=== PATIENT | female | born 1955 | race Caucasian/White ===

== ENCOUNTER 2018-01-01 09:45 | Inpatient (IN) ==
[2018-01-01] MEDS ORDERED: NORMAL SALINE 10 ML SYRINGE FLUSH IVP PRN (10:25)
[2018-01-01] MEDS ORDERED: Sodium Chloride 0.9% 1,000 ML PRIMARY IV ONE (10:25)
--- NOTE | 2018-01-01 10:45 | EKG ---
[address] [place] [address] Measurements Intervals [place] Rate: 98 P: 50 VT: 142 QRS: 19 QRSD: 93 T: 11 QT: 350 QTc: 405 Interpretive Statements SINUS RHYTHM LOW QRS VOLTAGE IN PRECORDIAL LEADS [QRS DEFLECTION < 1.0 mV IN CHEST LEADS] No previous ECG available for comparison Electronically Signed On 01-02-18 08:32:15 MDT by Derian Nuno MD [email or web address]
[2018-01-01] MEDS ORDERED: cefTRIAXone Inj 2 GM in Sodium Chloride 0.9% 100 ML IV ONE (10:53)
[2018-01-01 11:43] LABS: Hematocrit [HCT] 29.1 % (37.0-47.0); Hemoglobin [HGB] 9.4 g/dL (12.0-16.0); MEAN CORPUSCULAR HEMOGLOBIN 30.1 PG (27-31); MEAN CORPUSCULAR HGB CONC 32.3 g/dL (33-37); MEAN CORPUSCULAR VOLUME 93.3 FL (81-99); MEAN PLATELET VOLUME 9.2 FL (7.4-12.2); RED BLOOD COUNT 3.12 10^6/uL (4.20-5.40)
[2018-01-01 11:59] LABS: SERUM ALBUMIN 3.1 g/dL (3.5-4.8)
--- NOTE | 2018-01-01 12:07 | DI ---
Chest PA and lateral views INDICATION: Cough COMPARISON: None FINDINGS: PA and lateral views of the chest are obtained. The cardiomediastinal silhouette is within normal limits. Retrocardiac opacity may represent developing pneumonia, followup to resolution. No pleural effusions. Bony elements are within normal limits. IMPRESSION: Retrocardiac opacity may represent developing pneumonia, followup to resolution.
[2018-01-01 12:16] LABS: PLATELET MORPHOLOGY COMMENT NORMAL MORPHOLOGY (NORM); RBC MORPHOLOGY COMMENT NORMAL MORPHOLOGY (NORM)
[2018-01-01 12:17] LABS: BAND NEUTROPHILS % 6 % (0-10); NEUTROPHILS % (MANUAL) 69 % (50-80); WBC MORPHOLOGY COMMENT SEE COMMENTS (NORM)
[2018-01-01 12:18] LABS: BASOPHILS % (MANUAL) 0 % (0-1); EOSINOPHILS % (MANUAL) 0 % (0-8); METAMYELOCYTES % 0 %; MONOCYTES % (MANUAL) 6 % (0-12); MYELOCYTES % 0 %; PROMYELOCYTES % 0 %
[2018-01-01] MEDS ORDERED: Hold Metformin-See Instruction 1 EACH MIS PRN (12:23)
[2018-01-01 12:30] LABS: VENOUS PH 7.38 (7.32-7.42)
--- NOTE | 2018-01-01 14:26 | DI ---
EXAM: CT Chest With Intravenous Contrast CLINICAL HISTORY: Dyspnea, SOB, elevated D-dimer. 52 ml Isovue 370, TECHNIQUE: Axial computed tomography images of the chest with intravenous contrast during the arterial phase of enhancement. Coronal and sagittal reformatted images were created and reviewed. COMPARISON: No relevant prior studies available. FINDINGS: Pulmonary arteries: See below. Aorta: No acute findings. No thoracic aortic aneurysm. Lungs: Questionable small filling defect right upper lobe pulmonary artery, axial image 30 of series 3 and left upper lobe, axial image 29 of series 3. These may be due to streak artifact but cannot exclude small PEs. Mild hazy tree-in-bud opacities in the left upper lobe may be pneumonitis. 10 mm nodule medial left lower lobe and 5 mm nodule left upper lobe, axial image 28 of series 3. Bibasilar lung atelectasis/airspace disease. Pleural space: Small bilateral pleural effusions. No pneumothorax. Heart: Unremarkable. No cardiomegaly. No significant pericardial effusion. No evidence of RV dysfunction. Mediastinum: Small hiatal hernia. Thickening of the distal esophagus. Bones/joints: No acute fracture. No dislocation. Soft tissues: Unremarkable. Lymph nodes: Slightly prominent mediastinal bilateral hilar lymph nodes. Liver: Fatty prominent liver. IMPRESSION: 1. Questionable small filling defect right upper lobe pulmonary artery, axial image 30 of series 3 and left upper lobe, axial image 29 of series 3. These may be due to streak artifact but cannot exclude small PEs. 2. Mild hazy tree-in-bud opacities in the left upper lobe may be endobronchial spread of infection or metastases. 3. 10 mm nodule medial left lower lobe and 5 mm nodule left upper lobe, axial image 28 of series 3. For low-risk patients recommend follow-up chest CT at 3-6 months. If unchanged consider an additional follow-up CT at 18-24 months. For high-risk patients (smoking history or other known risk factors) initial follow-up chest CT at 3-6 months and if unchanged, 18-24 months. 4. Slightly prominent mediastinal bilateral hilar lymph nodes. 5. Small bilateral pleural effusions. [employer] 01/01/18 14:36 Verify Receipt Verified receipt with Jessica HURD, given to Dr. Arian Yin on 01/01 14:36 (-06:00)
--- NOTE | 2018-01-01 14:34 | DI ---
EXAM: US Duplex Bilateral Lower Extremity Veins CLINICAL HISTORY: ITS.REASON elevated d-dimer; bilateral leg swelling Physician Notes: Tech Comments: TECHNIQUE: Real-time duplex ultrasound scan of the bilateral lower extremity veins integrating B-mode two-dimensional vascular structure, Doppler spectral analysis, color flow Doppler imaging and compression. COMPARISON: No relevant prior studies available. FINDINGS: Right deep veins: Unremarkable. No DVT in the right common femoral, femoral, proximal deep femoral or popliteal veins. The veins demonstrate normal color flow, are normally compressible, with normal phasic flow and/or augmentation response. Right superficial veins: Unremarkable. No thrombus in the visualized right great saphenous vein. Left deep veins: Unremarkable. No DVT in the left common femoral, femoral, proximal deep femoral or popliteal veins. The veins demonstrate normal color flow, are normally compressible, with normal phasic flow and/or augmentation response. Left superficial veins: Unremarkable. No thrombus in the visualized left great saphenous vein. Soft tissues: No acute findings. No popliteal cyst. Other findings: IMPRESSION: No acute findings.
[2018-01-01] MEDS ORDERED: LIDOCAINE W/ SODIUM BICARB 0.5 ML SYR SUBD PRN (15:07)
[2018-01-01] MEDS ORDERED: DOCUSATE 100 MG CAPSULE PO PRN (15:07)
[2018-01-01] MEDS ORDERED: ACETAMINOPHEN 325 MG TABLET PO PRN (15:07)
[2018-01-01] MEDS ORDERED: ONDANSETRON 4 MG/2 ML VIAL IVP PRN (15:07)
[2018-01-01] MEDS ORDERED: CALCIUM CARBONATE 500 MG (TUMS) CHEWABLE TABLET PO PRN (15:07)
[2018-01-01] MEDS ORDERED: POTASSIUM CHLORIDE 20 MEQ TAB PO ONE (16:27)
[2018-01-01] MEDS ORDERED: FUROSEMIDE 10 MG/1 ML - 10 ML IVP ONE (16:27)
[2018-01-01] MEDS ORDERED: HYDROcodone-APAP 5 MG -325 MG TABLET PO PRN (16:41)
[2018-01-01] MEDS ORDERED: Insulin Sliding Scale Protocol SUBCUT PRN (16:42)
[2018-01-01] MEDS ORDERED: Glucagon Inj Vial 1 MG/ML VIAL IM PRN (16:42)
[2018-01-01] MEDS ORDERED: DEXTROSE 31 GM GEL PO PRN (16:42)
[2018-01-01] MEDS ORDERED: DEXTROSE 50%-WATER SYRINGE 50 ML SYRINGE IVP PRN (16:42)
[2018-01-01] MEDS ORDERED: ENOXAPARIN SODIUM 40 MG/0.4 ML SYRINGE SUBCUT ONE (16:45)
--- NOTE | 2018-01-01 17:00 | PDOC ---
HPI - History of Present Illness Date of Service: 01/01/18 Time of Service: 16:53 Chief Complaint: weight gain, generalized weakness History of Present Illness: This is a very pleasant 62 YO female with DMII, HTN, high cholesterol, and a recently diagnosed pelvic/ovarian mass and right obstructing kidney stone with E. coli sepsis and bacteremia who presents with her daughter today complaining of weight gain and weakness. The patient states that she has new onset edema in her lower extremities and her daughter actually described her mother's ankles is "dainty" in terms of their normal appearance. The patient's story and she started earlier this month, when she came down with right-sided pain and was diagnosed with a urinary tract infection. She is placed on Macrobid but that did not help. She was then given some Pyridium and that did not help. On December 27, the pain was too much, and she came in for evaluation and was found to have a large ovarian or pelvic mass, along with a 5 mm obstructing kidney stone on the right side with presumed renal pelvis rupture. The patient was transferred to [facility] in [place], [place], at that time, and a ureteral stent was placed and fluid was obtained for cultures. Escherichia coli grew out there. It was pansensitive in both locations. She also had Escherichia coli growing in the blood here in [place], [place], from her 2017 emergency room visit. They treated her with Rocephin for the infection and she's been doing well in that regard. I spoke with infectious disease specialist there and they were planning on 7-10 days of IV antibiotics with by mouth antibiotics following that at least until the stone was removed and the stent exchange took place. In terms of the pelvic mass, the patient had toy consultant see her at [facility] who then wanted an office visit to generate an office based referral for gynecologic/oncologic service in [place]. That referral has not taken place at this time. The patient was discharged from [facility] yesterday, but came back here with her daughter complaining of the increased weight gain and edema. Patient does not had anything like this happen before. She does not have any chest pain. She's not had any fevers or cough. In the emergency room today, the patient had a CT scan to look for pulmonary emboli due to an elevated d-dimer and I discussed with the radiologist and it appears that there is a streak artifact but no evidence for pulmonary emboli. Nothing thus far has helped the patient feel better from her weight gain and fluid overload and weakness standpoint. There seems to be no exacerbating factors. She's not had congestive heart failure diagnosed before. She's never had an echocardiogram. She did have noted some pleural effusions bilaterally. Past Medical History Medical History: 1. Escherichia coli sepsis/bacteremia due to right nephrolithiasis with hydroureteral and hydronephrosis but no evidence of ruptured renal pelvis. (No extravasation of fluid at the time of stent placement). 2. Hypertension. 3. Recently diagnosed pelvic mass on 12/27/2017 , still in workup. 4. Hypercholesterolemia. 5. Diabetes mellitus type II, well-controlled no known complications. 6. Obesity with body mass index greater than 40 kg/m Surgical History: 1. Remote hysterectomy. Pertinent Family History: Her father had prostate cancer and heart disease. Past Social History: Does not smoke or drink. . 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 Lives with her . Has 1 daughter who is healthy. She is full code. Tobacco Use: Never Smoker In the Past 12 Months, Have Used or Abuse Any of the Following Substance: None Alcohol Use: None Medication / Allergies Home Medications: Home Medications 3 Medication Instructions Recorded Confirmed Type Metformin HCl 1,000 mg PO BID 12/27/17 01/01/18 History Metoprolol Succinate 100 gm PO BID 12/27/17 01/01/18 History Phenazopyridine HCl [Pyridium] 100 mg PO TID 12/27/17 01/01/18 History Simvastatin 20 mg PO BEDTIME 12/27/17 01/01/18 History cefTRIAXone Inj 2gm (Premix) 2 gm IV DAILY 01/01/18 01/01/18 History [Rocephin Inj 2gm (Premix)] Allergies/Adverse Reactions: Allergies 3 Allergy/AdvReac Type Severity Reaction Status Date / Time codeine Allergy Mild NAUSEA Verified 12/27/17 15:06 Review of Systems - Review of Systems All Systems: Reviewed & No Additional Complaints Except as Stated (I did a 12 point review systems was negative other than that discussed in history of present illness and those exceptions noted below.) - Constitutional Constitutional: REPORTS: Weight Gain (7 pounds over the last couple of days.), Weakness, Recent Illness - Respiratory Respiratory: REPORTS: Negative System Review - Cardiovascular Cardiovascular: REPORTS: Negative System Review - Gastrointestinal Gastrointestinal / Abdominal: REPORTS: Negative System Review - Genitourinary Genitourinary: REPORTS: Other (Had had some developing urinary incontinence that the patient attributed to her age over the last several months.) - Musculoskeletal Musculoskeletal: REPORTS: Joint Pain - Hands (Specifically the fingers) - Neurological Neurologic: REPORTS: Negative System Review - Additonal Details Additional ROS Details: Does not monitor her blood pressures at home. But they tend to be systolics in the 140s when she is in for her office appointments with her primary physician, Dr. Shannon. Exam - Vitals Vital Signs: Vital Signs Temperature 97 F Temperature Source Temporal Artery Scan Pulse Rate [Pulse Oximeter] 106 Respiratory Rate 20 Blood Pressure [Left Arm] 176/83 Pulse Ox 92 Oxygen Delivery Method Room Air Weight 255 lb - General General Appearance: No Acute Distress, Cooperative - Head Head Exam: Normal Inspection, Normocephalic, Atraumatic - Eye Eye Exam: POSITIVE: No Scleral Icterus - ENT ENT Exam: POSITIVE: Mucous Membranes Moist - Neck Neck Exam: Normal Inspection, No Tenderness, No Lymphadenopathy, No Thyromegaly , JVP is not Raised - Respiratory Respiratory Exam: POSITIVE: Breathing Non Labored, Normal To Percussion, Normal to Percussion and Palpation, Decreased Breath Sounds (In the bases bilaterally) - Cardiovascular Cardiovascular Exam: POSITIVE: RRR, No Murmur, No Clicks, No Gallops, No Rubs, No JVD - GI/Abdominal GI/Abdominal Exam: POSITIVE: Normal Bowel Sounds, Non Tender, Non Distended, Soft - Rectal Rectal Exam: POSITIVE: Deferred - External Exam: POSITIVE: Deferred Exam: POSITIVE: Deferred - Extremities Extremities Exam: POSITIVE: No Clubbing Present, No Cyanosis Present, Pedal Edema, +2 Edema - Back Back Exam: POSITIVE: No CVA Tenderness - Neurological Neurological Exam: POSITIVE: Alert, Oriented x 3, Normal Gait, No Facial Droop, Speech Intact / Clear, Moves All Extremities Equally - Psychiatric Psychiatric Exam: POSITIVE: Normal Affect, Normal Mood Results - Labs CBC and BMP: 01/01/18 11:35 01/01/18 11:35 Additional Lab Results: Laboratory Results 01/01/18 01/01/18 01/01/18 Range/Units 10:50 11:35 11:35 WBC (4.8-10.8) 10^3/uL RBC (4.20-5.40) 10^6/uL Hgb (12.0-16.0) g/dL Hct (37.0-47.0) % MCV (81-99) FL MCH (27-31) PG MCHC (33-37) g/dL RDW Std Deviation (39-50) fL RDW Coeff of Ronny (11.5-14.5) % Plt Count (140-350) 10*3/uL MPV (7.4-12.2) FL Neutrophils % (Manual) (50-80) % Band Neutrophils % (0-10) % Lymphocytes % (Manual) (10-50) % Monocytes % (Manual) (0-12) % Eosinophils % (Manual) (0-8) % Basophils % (Manual) (0-1) % Metamyelocytes % % Myelocytes % % Promyelocytes % % Blast Cells (0-1) % WBC Morphology Comment (NORM) Plt Morphology Comment (NORM) RBC Morph Comment (NORM) D-Dimer 4.64 H (0.00-0.59) mg/L VBG pH 7.38 (7.32-7.42) VBG pCO2 35 L (45-55) mmHg VBG HCO3 21 L (22-26) mmol/L VBG Base Excess -4 L (-2-2) MMOL/L Sodium (135-145) meq/L Potassium (3.8-5.2) meq/L Chloride (98-112) meq/L Carbon Dioxide (23-33) meq/L Anion Gap (5-20) BUN (7-22) mg/dL Creatinine (0.50-1.20) mg/dL Estimated GFR (>60 ml/min/1.73m(2)) BUN/Creatinine Ratio (6-20) Glucose (78-110) mg/dL Calculated Osmolality (267-292) mOsm/kg Lactic Acid 0.8 (0.70-2.10) MMOL/L Calcium (8.7-10.7) mg/dL Total Bilirubin (0.3-1.2) mg/dL AST (8-39) IU/L ALT (9-52) IU/L Alkaline Phosphatase (38-126) IU/L CK-MB (CK-2) (0.00-5.00) NG/ML Troponin I (< 0.040) ng/mL NT-Pro-B Natriuret Pep (0-125) PG/ML Total Protein (6.1-8.0) g/dL Albumin (3.5-4.8) g/dL Globulin (2.50-4.10) g/dL Albumin/Globulin Ratio (1.3-2.0) mg/g 01/01/18 01/01/18 01/01/18 Range/Units 11:35 11:35 11:35 WBC 13.47 H (4.8-10.8) 10^3/uL RBC 3.12 L (4.20-5.40) 10^6/uL Hgb 9.4 L (12.0-16.0) g/dL Hct 29.1 L (37.0-47.0) % MCV 93.3 (81-99) FL MCH 30.1 (27-31) PG MCHC 32.3 L (33-37) g/dL RDW Std Deviation 48.7 (39-50) fL RDW Coeff of Ronny 14.8 H (11.5-14.5) % Plt Count 319 (140-350) 10*3/uL MPV 9.2 (7.4-12.2) FL Neutrophils % (Manual) 69 (50-80) % Band Neutrophils % 6 (0-10) % Lymphocytes % (Manual) 19 (10-50) % Monocytes % (Manual) 6 (0-12) % Eosinophils % (Manual) 0 (0-8) % Basophils % (Manual) 0 (0-1) % Metamyelocytes % 0 % Myelocytes % 0 % Promyelocytes % 0 % Blast Cells 0 (0-1) % WBC Morphology Comment See comments (NORM) Plt Morphology Comment Normal morphology (NORM) RBC Morph Comment Normal morphology (NORM) D-Dimer (0.00-0.59) mg/L VBG pH (7.32-7.42) VBG pCO2 (45-55) mmHg VBG HCO3 (22-26) mmol/L VBG Base Excess (-2-2) MMOL/L Sodium (135-145) meq/L Potassium (3.8-5.2) meq/L Chloride (98-112) meq/L Carbon Dioxide (23-33) meq/L Anion Gap (5-20) BUN (7-22) mg/dL Creatinine (0.50-1.20) mg/dL Estimated GFR (>60 ml/min/1.73m(2)) BUN/Creatinine Ratio (6-20) Glucose (78-110) mg/dL Calculated Osmolality (267-292) mOsm/kg Lactic Acid (0.70-2.10) MMOL/L Calcium (8.7-10.7) mg/dL Total Bilirubin (0.3-1.2) mg/dL AST (8-39) IU/L ALT (9-52) IU/L Alkaline Phosphatase (38-126) IU/L CK-MB (CK-2) 0.22 (0.00-5.00) NG/ML Troponin I < 0.012 (< 0.040) ng/mL NT-Pro-B Natriuret Pep 957 H (0-125) PG/ML Total Protein (6.1-8.0) g/dL Albumin (3.5-4.8) g/dL Globulin (2.50-4.10) g/dL Albumin/Globulin Ratio (1.3-2.0) mg/g 01/01/18 Range/Units 11:35 WBC (4.8-10.8) 10^3/uL RBC (4.20-5.40) 10^6/uL Hgb (12.0-16.0) g/dL Hct (37.0-47.0) % MCV (81-99) FL MCH (27-31) PG MCHC (33-37) g/dL RDW Std Deviation (39-50) fL RDW Coeff of Ronny (11.5-14.5) % Plt Count (140-350) 10*3/uL MPV (7.4-12.2) FL Neutrophils % (Manual) (50-80) % Band Neutrophils % (0-10) % Lymphocytes % (Manual) (10-50) % Monocytes % (Manual) (0-12) % Eosinophils % (Manual) (0-8) % Basophils % (Manual) (0-1) % Metamyelocytes % % Myelocytes % % Promyelocytes % % Blast Cells (0-1) % WBC Morphology Comment (NORM) Plt Morphology Comment (NORM) RBC Morph Comment (NORM) D-Dimer (0.00-0.59) mg/L VBG pH (7.32-7.42) VBG pCO2 (45-55) mmHg VBG HCO3 (22-26) mmol/L VBG Base Excess (-2-2) MMOL/L Sodium 139 (135-145) meq/L Potassium 3.7 L D (3.8-5.2) meq/L Chloride 106 (98-112) meq/L Carbon Dioxide 20 L (23-33) meq/L Anion Gap 13 (5-20) BUN 26 H (7-22) mg/dL Creatinine 1.0 (0.50-1.20) mg/dL Estimated GFR 56 (>60 ml/min/1.73m(2)) BUN/Creatinine Ratio 26.00 H (6-20) Glucose 106 (78-110) mg/dL Calculated Osmolality 292.0 (267-292) mOsm/kg Lactic Acid (0.70-2.10) MMOL/L Calcium 8.6 L (8.7-10.7) mg/dL Total Bilirubin 0.3 D (0.3-1.2) mg/dL AST 31 (8-39) IU/L ALT 37 (9-52) IU/L Alkaline Phosphatase 197 H (38-126) IU/L CK-MB (CK-2) (0.00-5.00) NG/ML Troponin I (< 0.040) ng/mL NT-Pro-B Natriuret Pep (0-125) PG/ML Total Protein 6.4 (6.1-8.0) g/dL Albumin 3.1 L (3.5-4.8) g/dL Globulin 3.3 (2.50-4.10) g/dL Albumin/Globulin Ratio 0.90 L (1.3-2.0) mg/g - EKG Data -: EKG Interpreted by Me Rate: Normal EKG Shows Normal: Sinus Rhythm - Imaging Status: Image Reviewed by Me (I reviewed the CT scan of the chest and discussed with Dr. Rollins, and it appears that the presumed blood clots are actually streak artifact. There is no pneumonia. There are bilateral effusions. I reviewed the CT scan from 12/27/2017, there is a large pelvic mass of about 14 x 19-20 cm. There was right hydronephrosis and hydroureter on that exam as well as a right kidney stone.), Other (I looked at the chest x-ray and is no evidence of pneumonia. There may be a slight left-sided pleural effusion that better seen on CT scan. Ultrasound studies were negative. That is for DVT.) Assessment and Plan - Patient Problems (1) Fluid overload Current Visit: Yes Status: Acute Code(s): E87.70 - Fluid overload, unspecified Qualifiers: Hypervolemia type: other Qualified Code(s): E87.79 - Other fluid overload (2) Bacteremia, escherichia coli Current Visit: Yes Status: Acute Code(s): R78.81 - Bacteremia (3) Pelvic mass Current Visit: Yes Status: Acute Code(s): R19.00 - Intra-abdominal and pelvic swelling, mass and lump, unspecified site (4) Diabetes mellitus type II, controlled Current Visit: Yes Status: Acute Code(s): E11.9 - Type 2 diabetes mellitus without complications Qualifiers: Diabetes mellitus senior care insulin use: without lobsterman use Diabetes mellitus complication status: without complication Qualified Code(s): E11.9 - Type 2 diabetes mellitus without complications (5) Hypertension Current Visit: Yes Status: Acute Code(s): I10 - Essential (primary) hypertension Qualifiers: Hypertension type: essential hypertension Qualified Code(s): I10 - Essential (primary) hypertension (6) Hypercholesterolemia Current Visit: Yes Status: Acute Code(s): E78.00 - Pure hypercholesterolemia , unspecified (7) Obesity Current Visit: Yes Status: Acute Code(s): E66.9 - Obesity, unspecified Qualifiers: Obesity classification: adult class 3 (BMI >= 40) Body mass index: BMI 45.0 -49.9 (8) Nephrolithiasis Current Visit: Yes Status: Acute Code(s): N20.0 - Calculus of kidney - Assessment / Plan Additional Assessment/Plan Details: Overall, I suspect she has fluid overload in the setting of resuscitation for her recent bout of Escherichia coli sepsis. She could have some diastolic dysfunction or right heart failure as well given her obesity, and may benefit from an echocardiogram but I'd like to diurese first. In terms of the pelvic mass, this is likely an ovarian mass, so I will get a CA- 125 level, and a human epididymis protein 4 level. I think ultimately she needs referral to the assembly line leader/oncologist physician. We will coordinate that tomorrow as possible. Continue the Rocephin IV 2 g every 24 hours. I spoke with infectious disease, we will continue that for total of 7-10 days and then switch to by mouth antibiotics until the patient can follow up with urology to have her stent removed, stone removed, and stent exchanged. It may be that this could be coordinated in [place] with her assembly line leader/oncologist referral as well? We will have to explore this scenario tomorrow. Check labs in a.m. Replace potassium. Continue DVT prophylaxis. I spoke with Dr. Rollins, and he feels that this is likely a streak artifact and not indicative of pulmonary emboli. I think the d-dimer is probably elevated in the setting of sepsis, infection, and everything else going on. Patient is full code. I discussed with her and her daughter. Discussed the above plan with the patient and her daughter and they agreed.
[2018-01-01] MEDS ORDERED: LIDOCAINE HCL 2 % 10 ML JELLY URO-JECT TOPICAL PRN (17:19)
[2018-01-01] MEDS ORDERED: METOPROLOL SUCCINATE PO SCH (21:00)
[2018-01-01] MEDS ORDERED: METOPROLOL SUCCINATE 50 MG PO SCH (21:00)
[2018-01-01] MEDS: Insulin Lispro Flexpen 300 UNIT/3 ML INSULN.PEN SUBCUT SCH (21:22)
[2018-01-01] MEDS ORDERED: Metoprolol TARTRATE Tab 50 MG TAB PO ONE (21:37)
--- NOTE | 2018-01-02 01:52 | PDOC ---
General Adult HPI - General Chief Complaint: Respiratory Complaint Stated Complaint: difficulty breathing, swollen feet and ankles Date Seen by Provider: 01/01/18 Time Seen by Provider: 10:00 Source: POSITIVE: Patient, Old records, Other (Daughter) Exam Limitations: POSITIVE: No limitations Nurse's Notes Reviewed & Considered: Yes - History of Present Illness Initial Comment: The patient is a 62-year-old female. Patient states that she was discharged from [facility] yesterday after having been treated for urosepsis. Patient was initially seen at our facility prior to going to [facility] on 12/27/2017. CT here at that time showed extravasation from the right kidney with decompression of the renal pelvis and right ureter. There was a 5 mm distal ureteral calculus. Also noted was a 15 x 15 x 20 cm mass in the central portion of the pelvis. Patient was transferred to [facility] on that day and treated for urosepsis and she had ureteral stenting done at that time. She is presently receiving Rocephin, 2 g IV. Her chief complaint upon presentation to the emergency room today is "swollen feet and ankles "and some shortness of breath. She has had some hoarseness since Tuesday following intubation which was done for her ureteral stenting. No known fevers or chills. Mild cough. No hemoptysis. No chest pain. Patient states that she was evaluated for her pelvic mass by [facility] in [place] and reportedly they are trying to arrange for her to have this further evaluated " by specialists ". Have you received a tetanus shot in the past 10 years?: Yes Body Location Affected: REPORTS: Lower Extremity (L), Lower Extremity (R) ( Swelling of the feet), Chest (Shortness of breath) Timing: REPORTS: Gradual Duration: >24 hours Severity: Moderate Quality: REPORTS: Other (Patient denies any pain anywhere) Context: DENIES: None, Sitting, Standing, Activity, Emotional stress, Coughing, Recent Trauma, Recent Surgery, Sleep, Rest, Lifting, Turning, Bending, Fall, Near Fall, Other Modifying Factors: improves with: Other (Decreased appetite) Similar Symptoms Previously: No Recent Care Received: REPORTS: Recently Seen, Treated by MD, Hospitalized, Surgery (As above) Any Prior Injuries Related to Current Complaint?: No - Patient Home Medications Home Medications: Home Medications Metformin HCl 1,000 mg PO BID 12/27/17 Metoprolol Succinate 100 gm PO BID 12/27/17 Phenazopyridine HCl [Pyridium] 100 mg PO TID 12/27/17 Simvastatin 20 mg PO BEDTIME 12/27/17 cefTRIAXone Inj 2gm (Premix) [Rocephin Inj 2gm (Premix)] 2 gm IV DAILY 01/01/18 - Patient Allergies Allergies/Adverse Reactions: Allergies 3 Allergy/AdvReac Type Severity Reaction Status Date / Time codeine Allergy Mild NAUSEA Verified 12/27/17 15:06 Past Medical History - heen HEENT History: Denies History Cardiovascular History: Hypertension, Hyperlipidemia Respiratory History: Denies History Gastrointestinal History: Denies History Genitourinary History: Denies History Endocrine History: Type 2 Diabetes (oral) Musculoskeletal History: Denies History Neurological History: Denies History Blood Disorders: Denies History Psychiatric History: Denies History History of Sexually Transmitted Diseases: No Cancer History: Denies History In Past Year Been Physically Harmed or Verbally Threatened: No History of MDRO: No Tobacco Use: Never Smoker In the Past 12 Months, Have Used or Abuse Any Substance: None Previous Surgical History: Yes Type / Date of Surgery: hysterectomy Significant Family History: Cancer Additional Family History: father Past Medical History Reviewed: Reviewed - No Changes ROS - Limitations ROS Limitations: No Limitations Constitution: REPORTS: Weight Loss (Patient states she has lost 5 pounds in the past 6 days) Cardiovascular: REPORTS: Denies Cardiac Symptoms Respiratory: REPORTS: Shortness Of Breath Neurological: REPORTS: Denies Neuro Symptoms Gastrointestinal: REPORTS: Denies GI Symptoms Endocrine: REPORTS: Denies Symptoms Musculoskeletal: REPORTS: Denies MS Symptoms Genitourinary: REPORTS: Denies Symptoms Eyes: REPORTS: Denies Symptoms ENT: REPORTS: Denies Symptoms Skin: REPORTS: Denies Skin Symptoms Lympathic: REPORTS: Denies Lympathic Symptoms Immunologic: POSITIVE: Denies Symptoms Psychiatric: POSITIVE: Denies Psych Symptoms General Adult Exam - General Appearance General Appearance: POSITIVE: Alert, Cooperative, No Acute Distress, No Evidence of Trauma - HEENT HEENT: POSITIVE: Head Inspection Nml, Eyes Inspection Nml, Ears Inspection Nml, Nose Inspection Nml, Oral/Dental Inspect. Nml, Pharynx Inspect. Nml, PERRL, EOMI - Pupils Pupil Size: 3 mm: Bilateral (PERRLA) - Neck Neck: POSITIVE: Normal Inspection, Thyroid Normal - Respiratory Respiratory: POSITIVE: No Respiratory Distress, Breath Sounds Normal, Chest Non- Tender - Cardiovascular Cardiovascular: POSITIVE: Regular Rate & Rhythm, No Murmur, No Gallop, PMI Normal Peripheral Pulses: Radial (R): 2+, Radial (L): 2+, Dorsalis-pedis (R): 2+, Dorsalis-pedis (L): 2+ - Abdomen Abdomen: Soft: (All Quadrants), Normal Bowel Sounds: (All Quadrants), Denies Tenderness: (All Quadrants), No Splenomegaly: (All Quadrants), No Hepatomegaly: (All Quadrants), No Guarding: (All Quadrants), No Rebound: (All Quadrants), No Palpable Pulse: (All Quadrants), Palpable Mass Noted: (RUQ), (LUQ) Additional Abdominal Details: Abdominal examination shows bowel sounds to be active. There is a palpable mass in the lower abdomen somewhat more to the left than to the right. - Back Back: POSITIVE: Normal Inspection - Skin Skin: POSITIVE: Normal Color, Warm, Dry, No Rash - Extremities Extremity: Non-Tender: (All Extremities), Normal ROM: (All Extremities), Pelvis Stable: (All Extremities), Normal Tendon Exam: (All Extremities), Calf Tenderness: (RLE), (LLE) Additional Extremities Details: Examination of the extremities shows some pedal edema bilaterally, nonpitting. Extremities are nontender on palpation. No signs of infection. - Neurological / Psychological Neurological: POSITIVE: Oriented X3, emergency care attendant Normal As Tested, Motor Normal, Sensation Normal, 5, 6 Images - Complete Complete: 1 - Pedal edema General Adult Progress - Results Reviewed by me Xrays/CTs/US Reviewed by me: Yes Discussed with Radiologist: Yes Radiology Findings: Radiologist reads chest x-ray as showing "retro-paracardial opacity, may represent developing pneumonia". Patient had an elevated d-dimer so CTA of chest with IV contrast was done which showed "questionable small filling defect left upper lobe pulmonary artery and left upper lobe. These may be due to streak artifact but cannot rule out small PEs ". Radiologist also identifies "mild hazy tree-in-bud opacities in the left upper lobe may be endobronchial spread of infection or metastases. "Small bilateral pleural effusions. Venous duplex ultrasound of both lower extremities and negative. Lab Results Reviewed by Me: Yes (d-dimer 4.64; troponin negative; BNP 957) CBC and BMP: 01/01/18 11:35 01/01/18 11:35 EKG Interpreted/Reviewed By Me:: Yes (normal) EKG Interpretation:: POSITIVE: Normal Sinus Rhythm, Normal Rate, Normal Intervals, Normal [place], Normal QRS, Normal ST/T - Patient's Progress Pain Medication Addressed: POSITIVE: Not Applicable School/Work Release Addressed: POSITIVE: Not Applicable Re-Examine Time: 14:45 Re-Examine Comment: Condition unchanged Status: POSITIVE: Unchanged, Re-Examined Antibiotics Given: No - Consult Consult (If Yes, Name of Consulting MD & Time Called): Yes (Dr. Delgadillo, hospitalist, [id number]) Consulting MD will see pt:: POSITIVE: [facility] Admit Counseled: POSITIVE: Patient, Family, RE: Lab Results, RE: Radiology Results, RE : DX, RE: Need for F/U Patient Care Time - Estimated PCT Patient Care Time (In Minutes): 60 Vital Signs - Recent Vital Signs Vital Signs: Vital Signs (Last 8 hours) Temp Pulse Resp BP Pulse Ox 01/02/18 00:35 98.8 F 91 20 122/47 94 01/01/18 20:09 97.1 F 97 16 171/77 94 - VS Reviewed Vital Signs Reviewed: Yes Discharge Clinical Impression: Pelvic mass, Dyspnea, Abnormal computed tomography angiography (CTA), Elevated brain natriuretic peptide (BNP) level, Pedal edema Discharge Disposition: Admit to Inpatient Condition: Fair Date Decision to Admit to Inpatient: 01/01/18 Time Decision to Admit to Inpatient: 14:40
[2018-01-02 05:14] LABS: Hematocrit [HCT] 28.4 % (37.0-47.0); Hemoglobin [HGB] 9.3 g/dL (12.0-16.0); MEAN CORPUSCULAR HEMOGLOBIN 30.5 PG (27-31); MEAN CORPUSCULAR HGB CONC 32.7 g/dL (33-37); MEAN CORPUSCULAR VOLUME 93.1 FL (81-99); MEAN PLATELET VOLUME 9.6 FL (7.4-12.2); RED BLOOD COUNT 3.05 10^6/uL (4.20-5.40)
[2018-01-02 05:16] LABS: BUN/CREATININE RATIO 22.72 (6-20); SERUM ALBUMIN 3.2 g/dL (3.5-4.8)
[2018-01-02 05:35] LABS: PLATELET MORPHOLOGY COMMENT NORMAL MORPHOLOGY (NORM); RBC MORPHOLOGY COMMENT SEE COMMENTS (NORM); WBC MORPHOLOGY COMMENT NORMAL MORPHOLOGY (NORM)
[2018-01-02 05:36] LABS: BAND NEUTROPHILS % 11 % (0-10); BASOPHILS % (MANUAL) 0 % (0-1); EOSINOPHILS % (MANUAL) 2 % (0-8); METAMYELOCYTES % 1 %; MONOCYTES % (MANUAL) 5 % (0-12); NEUTROPHILS % (MANUAL) 64 % (50-80)
[2018-01-02] MEDS ORDERED: CEFTRIAXONE 2 GM IV SCH (09:00)
[2018-01-02] MEDS: cefTRIAXone Inj 2 GM in Sodium Chloride 0.9% 100 ML IV SCH (09:34)
[2018-01-02] MEDS: METOPROLOL SUCCINATE 50 MG SR 24H TABLET PO SCH ×2 (09:35→10:01)
[2018-01-02] MEDS: ENOXAPARIN SODIUM 40 MG/0.4 ML SYRINGE SUBCUT SCH (09:36)
[2018-01-02] MEDS: NORMAL SALINE 10 ML SYRINGE FLUSH IVP PRN ×3 (09:47→15:21)
[2018-01-02] MEDS: Insulin Lispro Flexpen 300 UNIT/3 ML INSULN.PEN SUBCUT SCH ×4 (10:58→22:54)
[2018-01-02] MEDS ORDERED: FUROSEMIDE 10 MG/1 ML - 10 ML IVP ONE ×2 (13:49→18:52)
[2018-01-02] MEDS ORDERED: Hold Metformin-See Instruction 1 EACH MIS PRN (13:50)
[2018-01-02] MEDS ORDERED: Magnesium Sulfate 2gm (Premix) 2 GM/50 ML BAG IV ONE (14:45)
--- NOTE | 2018-01-02 18:51 | PDOC(PROG) ---
Date and Time of Service: 01/02/2018, 1845 Interval History: Patient seen and examined earlier today and seen twice today. No complaint of chest pain. Still has some edema, states that her toes are little more tingly. No nausea or vomiting, chest pain, or shortness of breath. Patient does have a hoarse voice. She thinks it's a little worse today. No feelings of throat pain. Objective : Data - Labs CBC and BMP: 01/02/18 04:10 01/02/18 04:10 Additional Lab Results: 01/02/18 04:10 Magnesium 1.5 L NT-Pro-B Natriuret Pep 803 H Selected Entries 01/02/18 07:00 01/02/18 11:00 01/02/18 16:00 Finger Stick Blood Glucose 136 H 106 112 H Objective : Exam - General General Appearance: No Acute Distress, Cooperative Additional General Exam Details: Vital Signs (24 hrs) Temp Pulse Resp BP Pulse Ox 01/02/18 17:00 97 F 105 H 18 151/83 93 01/02/18 11:19 98 F 93 18 142/76 92 01/02/18 08:08 98.1 F 99 16 140/67 93 01/02/18 07:00 98 16 01/02/18 04:12 98.1 F 99 20 137/65 93 01/02/18 04:04 92 01/02/18 00:35 98.8 F 91 20 122/47 94 01/01/18 20:09 97.1 F 97 16 171/77 94 - Eye Eye Exam: No Scleral Icterus - ENT ENT Exam: Mucous Membranes Moist - Respiratory Respiratory Exam: Clear to Auscultation - Bilaterally, Breathing Non Labored - Cardiovascular Cardiovascular Exam: RRR, No Murmur, No Clicks, No Gallops, No Rubs, No JVD - GI/Abdominal GI/Abdominal Exam: Normal Bowel Sounds, Non Tender, Non Distended, Soft - Extremities Extremities Exam: No Clubbing Present, No Cyanosis Present, Pedal Edema, +2 Edema - Neurological Neurological Exam: Alert, Oriented x 3, Normal Gait, No Facial Droop, Speech Intact / Clear, Moves All Extremities Equally Assessment and Plan - Patient Problems (1) Fluid overload Current Visit: Yes Status: Acute Code(s): E87.70 - Fluid overload, unspecified Qualifiers: Hypervolemia type: other Qualified Code(s): E87.79 - Other fluid overload (2) Bacteremia, escherichia coli Current Visit: Yes Status: Acute Code(s): R78.81 - Bacteremia (3) Pelvic mass Current Visit: Yes Status: Acute Code(s): R19.00 - Intra-abdominal and pelvic swelling, mass and lump, unspecified site (4) Diabetes mellitus type II, controlled Current Visit: Yes Status: Acute Code(s): E11.9 - Type 2 diabetes mellitus without complications Qualifiers: Diabetes mellitus prison insulin use: without bed bug exterminator use Diabetes mellitus complication status: without complication Qualified Code(s): E11.9 - Type 2 diabetes mellitus without complications (5) Hypertension Current Visit: Yes Status: Acute Code(s): I10 - Essential (primary) hypertension Qualifiers: Hypertension type: essential hypertension Qualified Code(s): I10 - Essential (primary) hypertension (6) Hypercholesterolemia Current Visit: Yes Status: Acute Code(s): E78.00 - Pure hypercholesterolemia , unspecified (7) Obesity Current Visit: Yes Status: Acute Code(s): E66.9 - Obesity, unspecified Qualifiers: Obesity classification: adult class 3 (BMI >= 40) Body mass index: BMI 45.0 -49.9 (8) Nephrolithiasis Current Visit: Yes Status: Acute Code(s): N20.0 - Calculus of kidney - Assessment / Plan Additional Assessment/Plan Details: We discussed plan extensively with her pelvic mass. I had obstetric to review it. We'll have the patient follow up with obstetrics here as it is local and that's what the patient would prefer in terms of her care. She will then decide whether she will proceed with that surgery here or possibly go on to [place] for gynecology/oncology referral. None of this would take place anyway until the stent is exchange and stone removed. Get appointment in the next week. Check labs again tomorrow. Repeat Lasix dose today and repeat another 80 mg. Give another dose of potassium. Replace magnesium. We'll get arrangements for follow-up with urology as scheduled tomorrow as well. Get echocardiogram tomorrow. If well hopefully tomorrow or home on by mouth Lasix for a week or 2. Probably will have to stop metoprolol. The patient seemed to respond MARCIA inhibitor better and although she was in renal failure in [place], was related to sepsis. I think it would be safe at this point to resume MARCIA inhibitor.
[2018-01-02] MEDS ORDERED: POTASSIUM CHLORIDE 20 MEQ TAB PO ONE (18:52)
[2018-01-02] MEDS ORDERED: LISINOPRIL 20 MG TABLET PO ONE (18:54)
--- NOTE | 2018-01-02 20:35 | DI ---
CT SCAN OF THE NECK WITHOUT IV CONTRAST, 01/02/2018 4:05 PM : Clinical History: Hoarse voice. The patient recently was intubated. Previous Exam: None at this facility. Scans are obtained from below the sternal notch to the petrous pyramids without IV contrast. Sagittal and coronal images are generated. The study was initially ordered as a scan of the neck with IV cont rast but the patient had renal insufficiency. The cervical vertebral bodies are of normal height and size. The disc spaces are normal. The carotid and vertebral arteries are grossly normal. There are no soft tissue masses on either side. No lymphad enopathy is identified. There is no prevertebral soft tissue swelling. There is asymmetry of the voca l cords with the anterior aspect of the left vocal cord being much smaller than the right side. The s cans were performed with thin slices and this required a longer time than usual with this [address] scanner. Therefore, there is a possibility that this asymmetry is an artifact. However, with the hist ory of recent intubation and hoarseness, laryngoscopy should be considered. The thyroid gland is norm al in size, but there is a dense calcification in the midportion of the right lobe. This calcificatio n is almost completely solid. The parotid and submandibular glands are normal. READIN. There is asymmetry of the vocal cords with the left side being much smaller in the anterior half than the right vocal cord. Although this may represent an artifact, with the history of hoarseness an d recent intubation, laryngoscopy is recommended. 2. There is a densely calcified nodule in the right lobe of the thyroid gland measuring 7 x 8 x 15 m m. This nodule is almost completely calcified and these typically are benign.
[2018-01-02] MEDS ORDERED: METOPROLOL SUCCINATE 50 MG SR 24H TABLET PO SCH (21:00)
[2018-01-03 05:31] LABS: Hematocrit [HCT] 28.7 % (37.0-47.0); Hemoglobin [HGB] 9.4 g/dL (12.0-16.0); MEAN CORPUSCULAR HGB CONC 32.8 g/dL (33-37); MEAN CORPUSCULAR VOLUME 91.7 FL (81-99); MEAN PLATELET VOLUME 9.3 FL (7.4-12.2); RED BLOOD COUNT 3.13 10^6/uL (4.20-5.40)
[2018-01-03 05:53] LABS: PLATELET MORPHOLOGY COMMENT NORMAL MORPHOLOGY (NORM); RBC MORPHOLOGY COMMENT NORMAL MORPHOLOGY (NORM)
[2018-01-03 05:54] LABS: BAND NEUTROPHILS % 0 % (0-10); BASOPHILS % (MANUAL) 0 % (0-1); EOSINOPHILS % (MANUAL) 1 % (0-8); MONOCYTES % (MANUAL) 5 % (0-12); NEUTROPHILS % (MANUAL) 74 % (50-80); WBC MORPHOLOGY COMMENT SEE COMMENTS (NORM)
[2018-01-03] MEDS: Insulin Lispro Flexpen 300 UNIT/3 ML INSULN.PEN SUBCUT SCH ×4 (07:21→20:26)
[2018-01-03] MEDS: ENOXAPARIN SODIUM 40 MG/0.4 ML SYRINGE SUBCUT SCH (09:33)
[2018-01-03] MEDS: cefTRIAXone Inj 2 GM in Sodium Chloride 0.9% 100 ML IV SCH (09:33)
[2018-01-03] MEDS: LISINOPRIL 20 MG TABLET PO SCH (09:33)
[2018-01-03 09:52] LABS: BUN/CREATININE RATIO 21.66 (6-20)
[2018-01-03] MEDS: HEPARIN 500 UNIT/5 ML SYRINGE FOR CENTRAL LINE IVP PRN ×2 (10:20→21:51)
[2018-01-03] MEDS: NORMAL SALINE 10 ML SYRINGE FLUSH IVP PRN ×3 (10:20→21:51)
[2018-01-03] MEDS ORDERED: Magnesium Sulfate 2gm (Premix) 2 GM/50 ML BAG IV ONE (11:05)
[2018-01-03] MEDS ORDERED: FUROSEMIDE 40 MG TABLET PO ONE (13:04)
--- NOTE | 2018-01-03 15:03 | PDOC(PROG) ---
Date and Time of Service: 01/03/2018, 1504 Interval History: No complaints of chest pain or shortness breath. Still feels like her ankles have some puffiness to them. Down to 238 pounds from over 250 pounds on admission. Diuresing very well. Voices still very soft. She had intubation in the setting of her cystoscopy. As to whether or not an endotracheal tube or a laryngeal mask airway was used I am not sure. We have follow-ups arranged for urology, infectious disease, ear nose and throat to examine her on , and obstetrics to evaluate the pelvic mass as well. All of these will take place over the next 10 days. Stop IV Lasix and start by mouth Lasix. Add daily potassium. Check electrolytes in a.m. Discontinue catheter. If all goes well, we'll discharge home tomorrow. Objective : Data - Labs CBC and BMP: 01/03/18 04:13 01/03/18 04:13 Assessment and Plan - Patient Problems (1) Fluid overload Current Visit: Yes Status: Acute Code(s): E87.70 - Fluid overload, unspecified Qualifiers: Hypervolemia type: other Qualified Code(s): E87.79 - Other fluid overload (2) Bacteremia, escherichia coli Current Visit: Yes Status: Acute Code(s): R78.81 - Bacteremia (3) Pelvic mass Current Visit: Yes Status: Acute Code(s): R19.00 - Intra-abdominal and pelvic swelling, mass and lump, unspecified site (4) Diabetes mellitus type II, controlled Current Visit: Yes Status: Acute Code(s): E11.9 - Type 2 diabetes mellitus without complications Qualifiers: Diabetes mellitus bed bug exterminator insulin use: without half-way use Diabetes mellitus complication status: without complication Qualified Code(s): E11.9 - Type 2 diabetes mellitus without complications (5) Hypertension Current Visit: Yes Status: Acute Code(s): I10 - Essential (primary) hypertension Qualifiers: Hypertension type: essential hypertension Qualified Code(s): I10 - Essential (primary) hypertension (6) Hypercholesterolemia Current Visit: Yes Status: Acute Code(s): E78.00 - Pure hypercholesterolemia , unspecified (7) Obesity Current Visit: Yes Status: Acute Code(s): E66.9 - Obesity, unspecified Qualifiers: Obesity classification: adult class 3 (BMI >= 40) Body mass index: BMI 45.0 -49.9 (8) Nephrolithiasis Current Visit: Yes Status: Acute Code(s): N20.0 - Calculus of kidney
[2018-01-03] MEDS ORDERED: FUROSEMIDE 10 MG/1 ML - 10 ML IVP ONE (21:15)
[2018-01-04] MEDS: FUROSEMIDE 20 MG TABLET PO SCH ×2 (07:00→12:27)
[2018-01-04 07:27] LABS: Human Epididymis Protein 4 432 pmol/L (<=140)
[2018-01-04] MEDS: Insulin Lispro Flexpen 300 UNIT/3 ML INSULN.PEN SUBCUT SCH ×2 (07:38→11:50)
[2018-01-04] MEDS: LISINOPRIL 20 MG TABLET PO SCH (08:32)
[2018-01-04] MEDS: ENOXAPARIN SODIUM 40 MG/0.4 ML SYRINGE SUBCUT SCH (08:32)
[2018-01-04] MEDS: cefTRIAXone Inj 2 GM in Sodium Chloride 0.9% 100 ML IV SCH (08:45)
[2018-01-04 08:48] VITALS: RESP 16
[2018-01-04] MEDS ORDERED: POTASSIUM CHLORIDE 20 MEQ TAB PO SCH (09:00)
[2018-01-04] MEDS: NORMAL SALINE 10 ML SYRINGE FLUSH IVP PRN (09:25)
[2018-01-04] MEDS: HEPARIN 500 UNIT/5 ML SYRINGE FOR CENTRAL LINE IVP PRN (09:26)
[2018-01-04 10:20] LABS: BUN/CREATININE RATIO 23.07 (6-20)
[2018-01-04 12:05] VITALS: BP 126/82; TEMP 98.1; O2SAT 94
--- NOTE | 2018-01-04 14:13 | DCSUMMARY ---
Hospitalization Summary Admit Date: 01/01/2018 Discharge Date: 01/04/18 Primary Diagnosis:: fluid overload, diastolic dysfunction Hospital Course: This very pleasant 62-year-old female that presented here with fluid overload and lower extremity edema and fairly significant weight increase. In fact she was 250+ pounds on admission and is now 236 pounds after diuresis. The patient was diuresed with Lasix, and we coordinated other aspects of her care. She had had a recent admission for sepsis and had a kidney stone that was blocking her right kidney. She has a stent in place and the plan is to do some sort of lithotripsy procedure along with the stent exchange in the next week. We arrange that appointment in the clinic to set that up with urology. During the hospital stay, the patient developed a hoarse voice. CT scan of the soft tissue of the neck showed right sided vocal cord inflammatory changes. We arranged an appointment with ear nose and throat for evaluation of the vocal cords tomorrow. During the hospital stay, we also discussed the pelvic mass at the patient has. She wants to either have surgery done here, or potentially go to [place] to have this done. But she would like to see a local mulcher operator. We arrange that with Dr. Ward. We do not know if this is benign or if this is a cancer. We also did a CA-125 and a human epididymis protein 4, and both levels are elevated. The patient has continued follow-up with infectious disease and we continued her Rocephin during the hospital stay. We switched her back to her lisinopril for her blood pressure management as she did not respond well to metoprolol for blood pressure management. She remained hypertensive on this medication. She tolerated that well and I think in terms of diastolic dysfunction and lower normal ejection fraction, that might be a better choice for her at this time. We will hold off on hydrochlorothiazide as we will diurese with Lasix. Metformin was held during the hospital stay but blood sugars were generally below 180. We will have the patient resume her metformin outside the hospital. Patient does have some iron deficiency anemia. I will start her on some iron tablets as well. She still has some lower extremity edema, but overall it is better and she feels like she can see her ankles again. No chest pain, no shortness breath, no nausea or vomiting. Her voice sounds a little bit better today. Assessment and Plan: 1. As per discharge assessments noted 2. Disposition: Patient is discharged home. 3. Condition on discharge, stable and improved. 4. Diet: regular diet 5. Activities: resume normal activities and increase as tolerated. 6. Follow-Up: 1. Dr. Shannon later this month 2. Dr. Buenrostro tomorrow for vocal cord evaluation 3. Dr. Mak next week for urology 4. [facility] on Tuesday 7. Medications at the Time of Discharge: Home Medications 3 Medication Instructions Recorded Confirmed Type Metformin HCl 1,000 mg PO BID 12/27/17 01/01/18 History Simvastatin 20 mg PO BEDTIME 12/27/17 01/01/18 History Furosemide [Lasix] 20 mg PO BID@0700,1300 #28 tab 01/04/18 Rx Lisinopril [Prinivil Tab] 20 mg PO DAILY tab 01/04/18 Rx Potassium Chloride [Klor-Con] 20 meq PO DAILY #14 tab 01/04/18 Rx cefTRIAXone Inj [Rocephin Inj] 2 gm IV Q24H vial 01/04/18 Rx Patient will also be on an iron tablet daily. 8. Time, care, counseling and coordination of care for this discharge is greater than 30 minutes. I discussed the above plan with the patient and her and they agreed. Exam - Vitals Vital Signs: Vital Signs Temperature 98.1 F Temperature Source Temporal Artery Scan Pulse Rate [Apical] 88 Pulse Rate [Pulse Oximeter] 106 Respiratory Rate 16 Blood Pressure [Left Arm] 126/82 Pulse Ox 94 Oxygen Delivery Method Room Air Height 5 ft 2 in Weight 236 lb 3.2 oz Selected Entries 01/01/18 16:30 01/04/18 05:36 Weight 255 lb 236 lb 3.2 oz - General General Appearance: No Acute Distress, Cooperative - Head Head Exam: Normal Inspection, Normocephalic, Atraumatic - Eye Eye Exam: POSITIVE: No Scleral Icterus - ENT ENT Exam: POSITIVE: Mucous Membranes Moist - Neck Neck Exam: JVP is not Raised - Respiratory Respiratory Exam: POSITIVE: Clear to Auscultation - Bilaterally, Breathing Non Labored - Cardiovascular Cardiovascular Exam: POSITIVE: RRR, No Murmur, No Clicks, No Gallops, No Rubs, No JVD - GI/Abdominal GI/Abdominal Exam: POSITIVE: Normal Bowel Sounds, Non Tender, Non Distended, Soft - Extremities Extremities Exam: POSITIVE: No Clubbing Present, No Cyanosis Present, +1 Edema - Neurological Neurological Exam: POSITIVE: Alert, Oriented x 3, No Facial Droop, Speech Intact / Clear, Moves All Extremities Equally - Psychiatric Psychiatric Exam: POSITIVE: Normal Affect, Normal Mood Data Peritnent Studies: 01/01/18 01/03/18 01/03/18 16:52 04:13 04:13 WBC 16.19 H Hgb 9.4 L Hct 28.7 L Plt Count 373 H Neutrophils % (Manual) 74 Band Neutrophils % 0 Sodium Potassium Chloride Carbon Dioxide Anion Gap BUN Creatinine Estimated GFR Glucose Calcium Iron 27 L TIBC 244 L % Saturation 11.07 L CA 125 Antigen 119 H Hum Epididymis Prot 4 432 H 01/04/18 10:00 WBC Hgb Hct Plt Count Neutrophils % (Manual) Band Neutrophils % Sodium 138 Potassium 3.9 Chloride 97 L Carbon Dioxide 25 Anion Gap 16 BUN 30 H Creatinine 1.3 H Estimated GFR 42 Glucose 127 H Calcium 8.4 L Iron TIBC % Saturation CA 125 Antigen Hum Epididymis Prot 4 Procedures: CT of neck, soft tissue READIN. There is asymmetry of the vocal cords with the left side being much smaller in the anterior half than the right vocal cord. Although this may represent an artifact, with the history of hoarseness and recent intubation, laryngoscopy is recommended. 2. There is a densely calcified nodule in the right lobe of the thyroid gland measuring 7 x 8 x 15 mm. This nodule is almost completely calcified and these typically are benign. Dictated By: 01/02/182020 JEREMIE URENA MD. Signed By: 01/02/182034 JEREMIE URENA MD. IMPRESSION: 1. Questionable small filling defect right upper lobe pulmonary artery, axial image 30 of series 3 and left upper lobe, axial image 29 of series 3. These may be due to streak artifact but cannot exclude small PEs. 2. Mild hazy tree-in-bud opacities in the left upper lobe may be endobronchial spread of infection or metastases. 3. 10 mm nodule medial left lower lobe and 5 mm nodule left upper lobe, axial image 28 of series 3. For low-risk patients recommend follow-up chest CT at 3-6 months. If unchanged consider an additional follow-up CT at 18-24 months. For high-risk patients (smoking history or other known risk factors) initial follow-up chest CT at 3-6 months and if unchanged, 18-24 months. 4. Slightly prominent mediastinal bilateral hilar lymph nodes. 5. Small bilateral pleural effusions. The above impression is of the CT scan of the chest for possible pulmonary emboli. I discussed this with radiology here. It appears to be a streak artifact. There was no evidence of pulmonary emboli. Ultrasound of the lower extremities was negative for DVT. Patient Problems - Patient Problem List (1) Fluid overload Current Visit: Yes Status: Acute Code(s): E87.70 - Fluid overload, unspecified Qualifiers: Hypervolemia type: other Qualified Code(s): E87.79 - Other fluid overload Category: Medical (2) Bacteremia, escherichia coli Current Visit: Yes Status: Acute Code(s): R78.81 - Bacteremia Category: Medical (3) Pelvic mass Current Visit: Yes Status: Acute Code(s): R19.00 - Intra-abdominal and pelvic swelling, mass and lump, unspecified site Category: Medical (4) Diabetes mellitus type II, controlled Current Visit: Yes Status: Acute Code(s): E11.9 - Type 2 diabetes mellitus without complications Qualifiers: Diabetes mellitus termite treater helper insulin use: without termite treater helper use Diabetes mellitus complication status: without complication Qualified Code(s): E11.9 - Type 2 diabetes mellitus without complications Category: Medical (5) Hypertension Current Visit: Yes Status: Acute Code(s): I10 - Essential (primary) hypertension Qualifiers: Hypertension type: essential hypertension Qualified Code(s): I10 - Essential (primary) hypertension Category: Medical (6) Hypercholesterolemia Current Visit: Yes Status: Acute Code(s): E78.00 - Pure hypercholesterolemia , unspecified Category: Medical (7) Obesity Current Visit: Yes Status: Acute Code(s): E66.9 - Obesity, unspecified Qualifiers: Obesity classification: adult class 3 (BMI >= 40) Body mass index: BMI 45.0 -49.9 Category: Medical (8) Nephrolithiasis Current Visit: Yes Status: Acute Code(s): N20.0 - Calculus of kidney Category: Medical (9) Iron deficiency anemia Current Visit: Yes Status: Acute Comment: Probably related infection but may need colonoscopy done at at a later date for screening when everything else is wrapped up. Code(s): D50.9 - Iron deficiency anemia, unspecified Qualifiers: Iron deficiency anemia type: other iron deficiency Qualified Code(s): D50.8 - Other iron deficiency anemias Category: Medical
== END 2018-01-04 14:34 | disposition home or self-care (01) | DRG 641 ==
LOC: ER 09:45 → MED/SURG 15:43
PROVIDERS: ADMIT Family Medicine; ATTEND Family Medicine